=== PATIENT | female | born 1960 | race Caucasian/White ===

== ENCOUNTER 2019-03-02 06:06 | Day surgery (SDC) | payer OTHER ==
[~2019-03-02] VITALS: Ht 152.4 cm; Wt 77.5 kg
[~2019-03-02 06:06] MED LIST: NO ACTIVE MEDS
[2019-03-02 07:10] VITALS: BP 126/58; PULSE 50; RESP 18
[2019-03-02] MEDS ORDERED: FENTAnyl 50 MCG/ML VIAL ONE (08:59)
[2019-03-02] MEDS ORDERED: MIDAZOLAM 1 MG/ML 2 ML INJ ONE (08:59)
[2019-03-02 09:00] VITALS: BP 119/61; PULSE 53; RESP 16
[2019-03-02 09:15] VITALS: BP 120/65; PULSE 50; RESP 16
[2019-03-02] MEDS ORDERED: ATROPINE 1 MG/10 ML SYRINGE ONE (12:43)
== END 2019-03-02 10:28 | disposition home or self-care (01) ==
LOC: GIL 06:06
PROVIDERS: ATTEND Internal Medicine Gastroenterology
DX: Z12.11 Encounter for screening for malignant neoplasm of colon (principal); K64.8 Other hemorrhoids; D12.3 Benign neoplasm of transverse colon; K44.9 Diaphragmatic hernia without obstruction or gangrene; K21.9 Gastro-esophageal reflux disease without esophagitis
CPT/HCPCS: 43239; 45380; 88305; J0461; J2250; J3010; Z7610